=== PATIENT | female | born 2000 | race Caucasian/White ===

== ENCOUNTER 2024-11-16 11:27 | Observation (INO) | payer MEDICAID, SELFPAY ==
[2024-11-16 11:27] VITALS: BP 115/72; PULSE 93; RESP 16; TEMP 36.6
--- NOTE | 2024-11-16 11:44 | XR_ITS ---
Examination: age Limited TECHNIQUE: Limited transabdominal sonographic images pelvis Exam date and time: November 16, 2024 at 1336 hours INDICATIONS: Patient leaking amniotic fluid beginning last night FINDINGS: Amniotic fluid index 14.6 cm Cardiac motion 133 BPM IMPRESSION: Amniotic fluid index 14.6 cm
[2024-11-16 11:53] VITALS: BP 115/72; PULSE 93
[2024-11-16 12:17] LABS: ROM Kit Lot # 57805053; Swb Mxed in Solvent 1 min? Yes
[2024-11-16 12:18] LABS: ROM Swab Mixed By: ASTOA1; Rupture of Fetal Membranes Negative (Negative)
[2024-11-16 12:31] VITALS: BMI 26.2
[2024-11-16 13:00] VITALS: RESP 18
[2024-11-16 13:16] VITALS: BP 95/53; PULSE 78
[2024-11-16 14:41] VITALS: BP 106/60; PULSE 75
== END 2024-11-16 14:50 | disposition home or self-care (01) ==
PROVIDERS: Admitting Provider Specialist; Visit Provider Specialist
DX: Z34.83 Encounter for supervision of other normal pregnancy, third trimester (principal); Z3A.35 35 weeks gestation of pregnancy
CPT/HCPCS: 59025; 59899; 76815; 84112

== ENCOUNTER 2024-12-14 05:53 | Inpatient (IN) | payer MEDICAID, SELFPAY ==
[2024-12-14] VITALS (15 sets, daily range): BP systolic 98–125; BP diastolic 56–80; PULSE 68–85; RESP 17–19; TEMP 34.6–37.2; O2SAT 98–100; BMI 18.8
[2024-12-14] MEDS: OXYTOCIN in NS 20 units 20 UNIT/1,000 ML BAG 125 UNIT IV (06:14)
--- NOTE | 2024-12-14 06:22 | PD.EDADDENDU ---
Emergency Room Addendum Addendum Narrative: 24-year-old G4, P3 at 39 weeks presenting to the ED via private vehicle complaining of water broke. Immediately checked in the ED. Eminent delivery. Immediate transfer to OB floor on ED melquiades followed by myself. Full-term infant delivered by ma OB floor
--- NOTE | 2024-12-14 06:42 | PD.LDHP ---
Documentation for date of: 12/14/24 OB Labor/Induct. HPI History of Present Illness : 4 Term pregnancies: 1 pregnancies: 1 Living children: 2 History of Abortions: Spontaneous and Elective: 1 History of sections: No History of : No History of present illness: Labor Labs Labs: Negative: Hepatitis B, HIV, Chlamydia and Gonorrhea Past Medical History Surgical History SURGICAL: Negative Section Meds Home Medications and Allergies Allergies Allergy/AdvReac Type Severity Reaction Status Date / Time Penicillins Allergy Intermediate Hives Verified 11/16/24 12:33 OB Exam Physical Exam Vital signs: Pulse BP Pulse Ox 68 110/68 100 12/14/24 06:31 12/14/24 06:31 12/14/24 06:08 OB Results Impressions Impression: s/p care
--- NOTE | 2024-12-14 06:43 | ESDS_ITS ---
DS: Providers Provider Date of admission: 12/14/24 06:11 Primary care physician: Physician No Primary/Family Admitting Provider: Yousif Holt MD Attending Provider on Admission: Yousif Holt MD Attending Provider on DC: Yousif Holt MD Discharging Provider: Yousif Holt MD DS: Diagnosis Problem List Completed Was Problem List Reviewed/Reconciled?: Yes Summary/Hosp Course Brief History: Labor Time Spent with Patient Time attestation: Total time spent providing and/or coordinating discharge services: Exam Vital Signs Pulse BP Pulse Ox 68 110/68 100 12/14/24 06:31 12/14/24 06:31 12/14/24 06:08 Discharge Plan Plan Patient Disposition: HOME (Self Care) Patient condition on transfer: Stable Prescriptions/Referrals Prescriptions/Med Rec: New ibuprofen 600 mg tablet 600 mg PO Q6H PRN (Reason: pain) Qty: 20 0RF Continued PNV [id number] fumarate-FA [] 28 mg iron- 800 mcg Tablet 1 tab PO QDAY Qty: 30 0RF Discontinued valacyclovir 500 mg tablet 500 mg PO DAILY Patient Comments: TAKE 1 TABLET BY MOUTH TWICE A DAY Referrals: No Primary/Family,Physician [Primary Care Provider] - Patient/Caregiver Discharge Instructions Discharge Activity: activity as tolerated Other Discharge Activity Instructions:: Follow up 6 weeks Print Language: Canadian Stand Alone Forms: Soha Award Info., Patient Portal Info Letter Discharge Order Discharge Orders: Discharge (Routine); Ordered 12/15/24 Ordered By: Yousif Holt Planned Discharge Date 12/15/24
--- NOTE | 2024-12-14 06:43 | PD.LDDELS ---
Data ([facility]) Data Hx Section: No : 5 Para: 3 Term: 3 : 1 : 2 Delivery Data ([facility]oto) Labor Data ROM Date: 12/14/24 ROM Time: 05:30 Rupture Type: SROM Delivery Data Labor Onset Stage 1 Date: 12/14/24 Labor Onset Stage 1 Time: 05:30 Labor Onset Stage 2 Date: 12/14/24 Labor Onset Stage 2 Time: 05:30 Delivery Date: 12/14/24 Delivery Time: 06:07 Placenta Delivery Date: 12/14/24 Placenta Delivery Time: 06:14 Delivered by: Obix, Delivery nurse: Renita Watts Delivery Method Delivery: Vaginal Delivery Type: Spontaneous Presentation: Vertex Position: OA Anesthesia Type Primary Anesthesia: None Placenta Placenta Delivery: Spontaneous Episiotomy Episiotomy: None EBL Estimated blood loss (ml): 150 Umbilical Cord Umbilical Vessels: 3 Nuchal Cord: None Body Cord: None Additional Procedures Delivered by Dr Membreno Complications Complications: None Data ([facility]oto) Data Infant Gender: Female Weight Grams: 3200 1 Minute Total: 8 5 Minute Total: 9
[2024-12-14 07:23] LABS: Basophils # (Auto) 0.1 Thou/mm3 (0.0-0.2); Basophils % (Auto) 1 % (0-2.5); Eosinophils # (Auto) 0.2 Thou/mm3 (0.0-0.5); Eosinophils % (Auto) 2 % (0-10); Hematocrit 31.8 % (36.0-46.0); Hemoglobin 10.8 g/dL (12.0-16.0); Immature Granulocytes % (Auto) 0 % (0-0); Immature Granulocytes Auto 0.03 Thou/mm3 (0.00-0.00); Lymphocytes # (Auto) 3.5 Thou/mm3 (1.0-4.8); Lymphocytes % (Auto) 32 % (10-50); Mean Corpuscular Hemoglobin 28.6 pg (25.0-35.0); Mean Corpuscular Volume 84 fL (80-100); Monocytes # (Auto) 0.9 Thou/mm3 (0.0-0.8); Monocytes % (Auto) 8 % (0-12); Neutrophils # (Auto) 6.3 Thou/mm3 (1.8-7.7); Neutrophils % (Auto) 58 % (37-80); Nucleated Red Blood Cell % 0 /100 WBC (0); Platelet Count 347 Thou/mm3 (140-440); RDW Standard Deviation 41.6 fL (36.4-46.3); Red Blood Count 3.77 Miln/mm3 (4.00-5.20); White Blood Count 10.9 Thou/mm3 (3.6-11.0)
[2024-12-14 10:57] LABS: Basophils # (Auto) 0.1 Thou/mm3 (0.0-0.2); Basophils % (Auto) 0 % (0-2.5); Eosinophils % (Auto) 0 % (0-10); Hematocrit 29.2 % (36.0-46.0); Hemoglobin 9.7 g/dL (12.0-16.0); Immature Granulocytes % (Auto) 0 % (0-0); Immature Granulocytes Auto 0.08 Thou/mm3 (0.00-0.00); Lymphocytes # (Auto) 1.5 Thou/mm3 (1.0-4.8); Lymphocytes % (Auto) 8 % (10-50); Mean Corpuscular HGB Conc 33.2 g/dl (31.0-37.0); Mean Corpuscular Hemoglobin 28.5 pg (25.0-35.0); Mean Corpuscular Volume 86 fL (80-100); Monocytes # (Auto) 1.1 Thou/mm3 (0.0-0.8); Monocytes % (Auto) 6 % (0-12); Neutrophils # (Auto) 16.4 Thou/mm3 (1.8-7.7); Neutrophils % (Auto) 86 % (37-80); Nucleated Red Blood Cell % 0 /100 WBC (0); Platelet Count 264 Thou/mm3 (140-440); White Blood Count 19.1 Thou/mm3 (3.6-11.0)
[2024-12-14 11:31] LABS: Syphilis Nonreactive (Nonreactive)
[2024-12-14 12:54] LABS: Basophils % (Auto) 0 % (0-2.5); Eosinophils % (Auto) 0 % (0-10); Hematocrit 29.6 % (36.0-46.0); Hemoglobin 9.7 g/dL (12.0-16.0); Immature Granulocytes % (Auto) 0 % (0-0); Immature Granulocytes Auto 0.06 Thou/mm3 (0.00-0.00); Lymphocytes # (Auto) 1.6 Thou/mm3 (1.0-4.8); Lymphocytes % (Auto) 10 % (10-50); Mean Corpuscular HGB Conc 32.8 g/dl (31.0-37.0); Mean Corpuscular Hemoglobin 28.3 pg (25.0-35.0); Mean Corpuscular Volume 86 fL (80-100); Monocytes % (Auto) 6 % (0-12); Neutrophils # (Auto) 13.3 Thou/mm3 (1.8-7.7); Neutrophils % (Auto) 83 % (37-80); Nucleated Red Blood Cell % 0 /100 WBC (0); Platelet Count 253 Thou/mm3 (140-440); Red Blood Count 3.43 Miln/mm3 (4.00-5.20)
[2024-12-14] MEDS: IBUPROFEN TAB 400 MG TABLET 800 MG PO (15:40)
--- NOTE | 2024-12-14 20:40 | PC.NURSE ---
During start of shift assessment, pt c/o discomfort at her bottom and said she feels like she might have hemorrhoids and was asking if she can get a cream. While assessing her bleeding, some swelling was noted at her anus. Dr. Holt was called to inform him of the situation and if pt can get hemorrhoid cream prescribed. Per OB, okay to put in order
--- NOTE | 2024-12-14 21:04 | PC.NURSE ---
Pharmacy called to inform nurse that there is currently no available Prep H ointment. Per pharmacist, they will change order to hydrocortisone cream
[2024-12-15 07:55] VITALS: BP 104/68; PULSE 88; RESP 18; TEMP 36.6; O2SAT 98
[2024-12-15] MEDS: Hydrocortisone Cr 2.5% 30 GM TUBE TOP (08:12)
--- NOTE | 2024-12-15 08:16 | PC.NURSE ---
[facility]
--- NOTE | 2024-12-15 08:44 | ESPR_ITS ---
RE: LEIGH ANN MACIAS : 2000 DATE OF SERVICE: 12/15/2024 SUBJECTIVE: day #1, the patient denies any problem or complaint. OBJECTIVE: Vital Signs: Stable. She is afebrile. Abdomen: Fundus is firm. Extremities: Nontender. LABORATORY DATA: Hemoglobin pre-delivery is 9.7, post-delivery 9.7. ASSESSMENT: day #1, status post spontaneous vaginal delivery. PLAN: Discharge home. Discharge instructions given. Follow up in the office in 6 weeks. DT: 07:46:36 TT: 08:42:00 Ref: [id number] - TID: [id number]
--- NOTE | 2024-12-15 15:22 | PC.SS ---
Update: SS student and SUPERVISOR [employer]SEM[employer] DEPARTMENT conducted bedside contact with the patient to address nursing referral indicating patient possessed history of depression. SS introduced self and role. SS asked patient for permission to speak in front of guest. Patient agreeable. SS discussed with patient basis of referral. Patient confirmed she had a hx of depression as a teenager. Since then, no further depression symptoms. Patient has no impairments. No thoughts of harming herself or others. Patient resides at home with switch operator and their three other children ages: 2,5,7 and now NB female. NB delivered naturally. This is the patient's [address] Ferrera provided OB services. Patient states consistency with appointments. Patient plans on breast feeding. Patient is aligned with WIC and SNAP. Patient denies hx of alcohol/drug use. Patient denies CWS intervention. Patient denies any episodes of domestic violence. Patient describes FOBChe as involved with the . Patient has access to approriate supplies and equipment. Patient has access to a car seat. [facility]OB will provide transportation upon discharge. Patient describes possessing support system consisting of switch operator and his extended family. Patient's [place] of [place]. client services representative provided resources to include: [employer], Warm line and community numbers. No further intervention required at this time, social media assistant will be available to address any further concerns. SS updated bedside nurse. [ End ]
--- NOTE | 2024-12-16 08:23 | PC.SS ---
Update: SS student and AUDIOVISUAL TECH conducted bedside contact with the patient to address nursing referral indicating patient possessed history of depression. SS introduced self and role. SS asked patient for permission to speak in front of guest. Patient agreeable. SS discussed with patient basis of referral. Patient confirmed she had a hx of depression as a teenager. Since then, no further depression symptoms. Patient has no impairments. No thoughts of harming herself or others. Patient resides at home with dude ranch manager and their three other children ages: 2,5,7 and now NB female. NB delivered naturally. This is the patient's [address] Ferrera provided OB services. Patient states consistency with appointments. Patient plans on breast feeding. Patient is aligned with WIC and SNAP. Patient denies hx of alcohol/drug use. Patient denies CWS intervention. Patient denies any episodes of domestic violence. Patient describes FOBChe as involved with the . Patient has access to approriate supplies and equipment. Patient has access to a car seat. FOB will provide transportation upon discharge. Patient describes possessing support system consisting of dude ranch manager and his extended family. Patient's family resides out of state. creative services specialist provided resources to include: [employer], Warm line and community numbers. No further intervention required at this time, nursing home social worker will be available to address any further concerns. SS updated bedside nurse. [ End ]
== END 2024-12-15 13:50 | disposition home or self-care (01) | DRG 560 ==
LOC: S4SX 01-01 09:04 → S4NX 01-01 09:04
PROVIDERS: Admitting Provider Specialist; Visit Provider Specialist
DX: O80 Encounter for full-term uncomplicated delivery (principal); Z37.0 Single live birth; Z3A.39 39 weeks gestation of pregnancy
CPT/HCPCS: 36415; 85025; 86780; 86850; 86900; 86901; 94762; G0378; J2590; A9270